=== PATIENT | female | born 1955 | race Caucasian/White ===

== ENCOUNTER → 2020-07-02 | Outpatient (CLI) | payer OTHER ==
[2020-07-02 16:07] LABS: HEMATOCRIT 29.9 % (37.0-47.0); HEMOGLOBIN 9.1 gm/dL (12.0-15.0); MCH 20.6 pg (26.0-34.0); MCHC 30.3 g/dL (28.0-37.0); MPV 7.7 fl. (7.2-11.1); RBC 4.4 mil/uL (4.20-5.00); RDW-CV 18.4 % (10.5-14.5); WBC 5.4 thou/uL (4.0-11.0)
[2020-07-02 16:14] LABS: CREATININE 0.9 mg/dL (0.6-1.3); POTASSIUM 4.4 mmol/L (3.5-5.1)
== END ==
LOC: M.LAB 15:42
PROVIDERS: ATTEND Podiatrist
DX: Z01.812 Encounter for preprocedural laboratory examination (principal); Z20.822 Contact with and (suspected) exposure to COVID-19